=== PATIENT | female | born 1990 | race Caucasian/White ===

== ENCOUNTER 2022-01-16 17:36 | Emergency (ER) | payer OTHER ==
[~2022-01-16] VITALS: Ht 160 cm; Wt 70.3 kg
[2022-01-16] MEDS ORDERED: hydrOXYzine (VISTARIL/ATARAX) 25 MG capsule/tablet PO ONE (18:15)
[2022-01-16 18:26] LABS: BASOPHILS % (AUTO) 0 % (0-10); EOSINOPHILS % (AUTO) 0 % (0-10); HEMATOCRIT 41 % (35-52); HEMOGLOBIN 14.6 g/dL (11.5-16.0); LYMPHOCYTES # (AUTO) 1.1 10^3/uL (1.0-4.0); LYMPHOCYTES % (AUTO) 14 % (12-44); MEAN CORPUSCULAR HEMOGLOBIN 33 pg (25-34); MEAN CORPUSCULAR HGB CONC 35 g/dL (32-36); MEAN CORPUSCULAR VOLUME 92 fL (80-99); MEAN PLATELET VOLUME 9.7 fL (9.0-12.2); MONOCYTES # (AUTO) 0.1 10^3/uL (0.0-1.0); MONOCYTES % (AUTO) 1 % (0-12); NEUTROPHILS # (AUTO) 6.6 10^3/uL (1.8-7.8); NEUTROPHILS % (AUTO) 84 % (42-75); PLATELET COUNT 353 10^3/uL (130-400); WHITE BLOOD COUNT 7.8 10^3/uL (4.3-11.0)
[2022-01-16 18:29] LABS: ALBUMIN 4.7 GM/DL (3.2-4.5); CHLORIDE 101 MMOL/L (98-107); POTASSIUM 3.8 MMOL/L (3.6-5.0); SODIUM 136 MMOL/L (135-145)
[2022-01-16 18:30] LABS: CALCIUM 9.5 MG/DL (8.5-10.1)
[2022-01-16 18:31] LABS: GLUCOSE 119 MG/DL (70-105); TOTAL PROTEIN 8.1 GM/DL (6.4-8.2)
[2022-01-16 18:32] LABS: CARBON DIOXIDE 22 MMOL/L (21-32)
[2022-01-16 18:33] LABS: BILIRUBIN,TOTAL 0.7 MG/DL (0.1-1.0)
[2022-01-16 18:35] LABS: ALKALINE PHOSPHATASE 44 U/L (40-136); CREATININE SERUM 0.86 MG/DL (0.60-1.30); GFR ESTIMATED 94
[2022-01-16 18:36] LABS: BUN/CREATININE RATIO 12
[2022-01-16 18:38] LABS: ALANINE AMINOTRANSFERASE 22 U/L (0-55)
[2022-01-16 18:40] LABS: BILIRUBIN,URINE NEGATIVE (NEGATIVE); CLARITY,URINE CLEAR; COLOR,URINE YELLOW; GLUCOSE, URINE (UA) NEGATIVE (NEGATIVE); KETONES,URINE NEGATIVE (NEGATIVE); LEUKOCYTE ESTERASE ,URINE NEGATIVE (NEGATIVE); NITRITE,URINE NEGATIVE (NEGATIVE); PROTEIN,URINE NEGATIVE (NEGATIVE)
[2022-01-16 18:46] LABS: BACTERIA,URINE NEGATIVE /HPF; SQUAMOUS EPITHELIAL CELL,UR 0-2 /HPF; WBC,URINE 0-2 /HPF
--- NOTE | 2022-01-16 18:53 | ED General ---
General Chief Complaint: Allergic Reaction Stated Complaint: ALLERGIC REACTION - AMOXICILLION Nursing Triage Note: PT AMBULATE TO ROOM 05 WITHOUT DIFFICULTY WITH C/O POSSIBLE ALLERGIC REACTION. PT STATES SHE WAS BITTEN BY HER CAT AND WAS GIVEN ABX. PT STATES SHE STARTED NOT TINGLY AND ITCHY. PT REPORTS BEING SEEN BY URGENT CARE AND TOLD TO STOP ABX AND WAS GIVEN STEROIDS AND PEPCID. PT REPORTS SHE DEVELOPED DIFFICULTY SWALLOWING X3 DAYS AND SWOLLEN LIPS STARTING TODAY. PT REPORTS LAST DOSE OF ABX ON THURSDAY Source of Information: Patient Exam Limitations: No Limitations History of Present Illness Date Seen by Provider: Jan 16, 2022 Time Seen by Provider: 17:45 Initial Comments This 31-year-old young lady presents to the emergency room with concerns about possible allergic reaction she thinks may have been caused by amoxicillin she was taking for a cat bite. She was bitten by a cat on her right upper arm last week and was treated with amoxicillin. She states the day after starting antibiotics she developed vague symptoms of generalized itching, tingling, and odd sensation of her face. She presented to urgent care and stopped the amoxicillin on January 13 which was 3 days ago. She continued to have the itching sensation and then thought she was experiencing some throat tightening and difficulty swallowing a few days ago. Then yesterday she was started on prednisone, Benadryl, and Pepcid. She noticed a faint patchy or lacy rash on her chest yesterday. Today she developed lip swelling. She appears quite anxious on arrival and her blood pressure is significantly elevated. She denies ever having any significant allergic reaction or angioedema in the past. Her only prescribed medication is oral contro [place]. She reports some persistent itchiness and states the Benadryl is not particularly effective at treating the itching. Over the past few days she has also experienced some transient upset stomach which was part of the reason for prescribing Pepcid. She denies any nausea or upset stomach at this time. She denies any new foods, topical products, or other exposures. Allergies and Home Medications Allergies Coded Allergies: amoxicillin (Verified Allergy, Intermediate, Itching, 01/16/22) Rash, itching, throat tightening famotidine (Verified Allergy, Intermediate, Angioedema, 01/16/22) Mild edema of the lips Patient Home Medication List Home Medication List Reviewed: Yes Epinephrine (Epipen) 0.3 Mg/0.3 Ml Auto.injct, 0.3 MG IJ UD Prescribed by: MOSHE RAMIREZ on 01/16/221925 Hydroxyzine HCl (Hydroxyzine HCl) 25 Mg Tablet, 25 MG PO Q6H PRN for ITCHING Prescribed by: MOSHE RAMIREZ on 01/16/221925 Review of Systems Review of Systems Constitutional: no symptoms reported EENTM: see HPI Respiratory: no symptoms reported Cardiovascular: see HPI Gastrointestinal: see HPI Genitourinary: no symptoms reported : No LMP: Jan 09, 2022 Musculoskeletal: no symptoms reported Skin: see HPI Psychiatric/Neurological: No Symptoms Reported Hematologic/Lymphatic: No Symptoms Reported Immunological/Allergic: no symptoms reported Past Lfrgxin-Efvfjo-Ytwrub Hx Patient Social History Tobacco Use?: No Smoking Status: Never a Smoker Smokeless Tobacco Frequency: Never a User Use of E-Cig and/or Vaping dev: No Use of E-Cig and/or Vaping Joo: Never a User Substance use?: Yes Substance type: Other Additional substance use comme: [place] Substance frequency: Daily Alcohol Use?: Yes Alcohol Frequency: Couple times a week Pt feels they are or have been: No Immunizations Up To Date COVID19 Vaccine 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 oz. 71.501604zo; 27.00 BMI Method:Stated General Appearance: WD/WN, Anxious HEENT: PERRL/EOMI, TMs Normal, Pharynx Normal, Other (Minimal lip edema at most) Neck: Normal Inspection Respiratory: Lungs Clear, Normal Breath Sounds, No Accessory Muscle Use Cardiovascular: Regular Rate, Rhythm, No Edema, No Murmur Gastrointestinal: Non Tender, Soft; No Distended Extremity: Normal Inspection, No Pedal Edema Neurologic/Psychiatric: Alert, Oriented x3, No Motor/Sensory Deficits, telescope maintenance II- XII Norm as Tested, Other (Rather anxious) Skin: Normal Color, Rash (Faint lacy or patchy mildly erythematous rash on her chest that is blanching with palpation) Progress/Results/Core Measures Suspected Sepsis SIRS Temperature: Pulse: 94 Respiratory Rate: 19 Laboratory Tests 01/16/22 17:50: White Blood Count 7.8 Blood Pressure 137 /95 Mean: 109 Laboratory Tests 01/16/22 17:50: Creatinine 0.86, Platelet Count 353, Total Bilirubin 0.7 Results/Orders Lab Results Laboratory Tests Test 01/16/22 17:50 01/16/22 18:34 Range/Units White Blood Count 7.8 4.3-11.0 10^3/uL Red Blood Count 4.49 3.80-5.11 10^6/uL Hemoglobin 14.6 11.5-16.0 g/dL Hematocrit 41 35-52 % Mean Corpuscular Volume 92 80-99 fL Mean Corpuscular Hemoglobin 33 25-34 pg Mean Corpuscular Hemoglobin Concent 35 32-36 g/dL Red Cell Distribution Width 11.7 10.0-14.5 % Platelet Count 353 130-400 10^3/uL Mean Platelet Volume 9.7 9.0-12.2 fL Immature Granulocyte % (Auto) 1 % Neutrophils (%) (Auto) 84 H 42-75 % Lymphocytes (%) (Auto) 14 12-44 % Monocytes (%) (Auto) 1 0-12 % Eosinophils (%) (Auto) 0 0-10 % Basophils (%) (Auto) 0 0-10 % Neutrophils # (Auto) 6.6 1.8-7.8 10^3/uL Lymphocytes # (Auto) 1.1 1.0-4.0 10^3/uL Monocytes # (Auto) 0.1 0.0-1.0 10^3/uL Eosinophils # (Auto) 0.0 0.0-0.3 10^3/uL Basophils # (Auto) 0.0 0.0-0.1 10^3/uL Immature Granulocyte # (Auto) 0.1 0.0-0.1 10^3/uL Sodium Level 136 135-145 MMOL/L Potassium Level 3.8 3.6-5.0 MMOL/L Chloride Level 101 98-107 MMOL/L Carbon Dioxide Level 22 21-32 MMOL/L Anion Gap 13 5-14 MMOL/L Blood Urea Nitrogen 10 7-18 MG/DL Creatinine 0.86 0.60-1.30 MG/DL Estimat Glomerular Filtration Rate 94 BUN/Creatinine Ratio 12 Glucose Level 119 H 70-105 MG/DL Calcium Level 9.5 8.5-10.1 MG/DL Corrected Calcium 8.5-10.1 MG/DL Magnesium Level 2.0 1.6-2.4 MG/DL Total Bilirubin 0.7 0.1-1.0 MG/DL Aspartate Amino Transf (AST/SGOT) 17 5-34 U/L Alanine Aminotransferase (ALT/SGPT) 22 0-55 U/L Alkaline Phosphatase 44 40-136 U/L C-Reactive Protein High Sensitivity 0.12 0.00-0.50 MG/DL Total Protein 8.1 6.4-8.2 GM/DL Albumin 4.7 H 3.2-4.5 GM/DL TSH [place] Testing 0.91 0.35-4.94 UIU/ML Serum Test, Qualitative NEGATIVE NEGATIVE Urine Color YELLOW Urine Clarity CLEAR Urine pH 6.0 5-9 Urine Specific [place] <=1.005 1.016-1.022 Urine Protein NEGATIVE NEGATIVE Urine Glucose (UA) NEGATIVE NEGATIVE Urine Ketones NEGATIVE NEGATIVE Urine Nitrite NEGATIVE NEGATIVE Urine Bilirubin NEGATIVE NEGATIVE Urine Urobilinogen 0.2 < = 1.0 MG/DL Urine Leukocyte Esterase NEGATIVE NEGATIVE Urine RBC (Auto) NEGATIVE NEGATIVE Urine RBC NONE /HPF Urine WBC 0-2 /HPF Urine Squamous Epithelial Cells 0-2 /HPF Urine Renal Epithelial Cells NONE /HPF Urine Crystals NONE /LPF Urine Bacteria NEGATIVE /HPF Urine Casts NONE /LPF Urine Mucus NEGATIVE /LPF Urine Culture Indicated NO My Orders Orders - MOSHE HUMPHREYS MD Cbc With Automated Diff (01/16/22 18:15) Comprehensive Metabolic Panel (01/16/22 18:15) Hs C Reactive Protein (01/16/22 18:15) Hcg,Qualitative Serum (01/16/22 18:15) Magnesium (01/16/22 18:15) Thyroid Analyzer (01/16/22 18:15) Ua Culture If Indicated (01/16/22 18:15) Ed Iv/Invasive Line Start (01/16/22 18:15) Hydroxyzine Cap/Tab (Vistaril) (01/16/22 18:15) Medications Given in ED Current Medications Medications Dose Ordered Sig/Liseth Route Start Time Stop Time Status Last Admin Dose Admin Hydroxyzine Pamoate 25 mg ONCE ONCE PO 01/16/22 18:15 01/16/22 18:17 DC 01/16/22 18:48 25 MG Vital Signs/I&O 01/16/22 01/16/22 17:40 19:49 Temp 37.0 36.3 Pulse 94 77 Resp 19 16 B/P (MAP) 137/95 (109) 149/100 Pulse Ox 96 O2 Delivery Room Air Room Air Capillary Refill : Less Than 3 Seconds Blood Pressure Mean: 109 Progress Note : Time: 18:56 Progress Note Patient seemed rather anxious about her situation. It is difficult to attribute all of her symptoms to anyone etiology. She may have had some degree of reaction to amoxicillin but that should have cleared her system by now and it has been adequately treated with antihistamines and Benadryl. The lip swelling that started today may be from angioedema. A review of the drug index reveals a known adverse effect of angioedema associated with Pepcid. I am adding amoxicillin and Pepcid to the allergy list. I have proposed watching the patient for a while in the ER to ensure she does not worsen while trying hydroxyzine for her itching and anxiousness. Patient was concerned about what might be causing her problems and desired to seek further evaluation. Labs were obtained. Departure Impression Primary Impression: Pruritus Additional Impressions: Lip edema Rash Episode of hypertension Anxiety about health Disposition: 01 HOME, SELF-CARE Condition: Improved Departure-Patient Inst. Decision time for Depature: 18:59 Referrals: [facility] (PCP/Family) Primary Care Physician DIONICIO VAZQUEZ MD, JACQUELINE S DO Patient Instructions: Angioedema Add. Discharge Instructions: You may use Benadryl (diphenhydramine) and/or a nondrowsy antihistamine such as Claritin (loratadine) or Zyrtec (cetirizine) for itching. When you are able to get hydroxyzine, you may use hydroxyzine instead of Benadryl for itching. Hy droxyzine may cause drowsiness, so use with caution. Avoid use of Pepcid (famotidine) or other H2 janet medications including cimetidine, Zantac, Ranitidine, Nizatidine, etc. It is possible Pepcid caused angioedema, and any of the medications in this class could cause angioedema again. You may stop prednisone. At this point it is not likely helping with your symptoms and has significant potential to cause problematic adverse effects such as agitation, upset stomach, insomnia, and high blood pressure. Follow-up with your primary care provider next week and to discuss referral for allergy testing if desired. If you have severe symptoms of angioedema in the future including significant lip swelling, tongue swelling, or throat swelling, use your EpiPen and take Benadryl 50 mg orally immediately. Then present to the emergency room or call 911. Call with questions or concerns. Return to the ER if you have any worsening of condition or other concerning medical problems despite following these instructions. All discharge instructions reviewed with patient and/or family. Voiced understanding. Scripts Hydroxyzine HCl (Hydroxyzine HCl) 25 Mg Tablet 25 MG PO Q6H PRN for ITCHING, #20 TAB For itching or anxiety Prov: MOSHE HUMPHREYS MD 01/16/22 Epinephrine (Epipen) 0.3 Mg/0.3 Ml Auto.injct 0.3 MG IJ UD, #1 ML 1 Refill Prov: MOSHE HUMPHREYS MD 01/16/22 Copy Copies To 1: [facility]/MOSHE AGRAWAL MD Jan 16, 2022 18:53
[2022-01-16 18:58] LABS: TSH (THYROID ANALYZER) 0.91 UIU/ML (0.35-4.94)
[2022-01-16] MEDS ORDERED: EPIN0.3P2 IJ (19:26)
[2022-01-16] MEDS ORDERED: HYDR-700 PO (19:26)
[2022-01-16 19:49] VITALS: BP 149/100
== END 2022-01-16 19:53 | disposition home or self-care (01) ==
LOC: EDUNIT# 17:36 → ER 17:40
DX: L29.9 Pruritus, unspecified (principal); R60.0 Localized edema; I10 Essential (primary) hypertension; F41.1 Generalized anxiety disorder; Z79.3 Long term (current) use of hormonal contraceptives; Z79.899 Other long term (current) drug therapy; Z32.02 Encounter for pregnancy test, result negative
CPT/HCPCS: 36415; 80053; 81000; 83735; 84443; 84703; 85025; 86141